=== PATIENT | male | born 1965 | race Caucasian/White ===

== ENCOUNTER 2018-03-25 12:23 | Emergency (ER) | payer BC, OTHER ==
--- NOTE | 2018-03-25 12:43 | ED ---
General Adult HPI - General Chief complaint: Chest Pain Stated complaint: chest pain Time Seen by Provider: 03/25/18 12:27 Source: patient, RN notes reviewed, old records reviewed Mode of arrival: ambulatory Limitations: no limitations - History of Present Illness Initial comments: 52-year-old male presents for evaluation of chest pressure. Patient states that in the past he's had some intermittent chest pressure. Over the past 2 days this pressure has become constant. Central chest slightly to the left side. Denies any significant pain. Denies any radiating component. No arm, shoulder, or neck pain. No dyspnea. No diaphoresis or nausea vomiting. No known history of CAD. Patient does have history of hypercholesterolemia and is on a statin medication. He also has history of tremor. Denies abdominal pain. Denies fever or chills. Denies cough. No family history of premature coronary artery disease. - Related Data Home Medications Medication Instructions Recorded Confirmed Naproxen [Naprosyn] 250 mg PO BID PRN 03/25/18 03/25/18 Rosuvastatin Calcium [Crestor] 40 mg PO DAILY 03/25/18 03/25/18 Topiramate [Topamax] 25 mg PO BID 03/25/18 03/25/18 Previous Rx's Medication Instructions Recorded Omeprazole [PriLOSEC] 20 mg PO AC-BID #60 cap 03/25/18 Allergies Allergy/AdvReac Type Severity Reaction Status Date / Time No Known Allergies Allergy Verified 03/25/18 13:34 Review of Systems ROS Statement: Those systems with pertinent positive or pertinent negative responses have been documented in the HPI. ROS Other: All systems not noted in ROS Statement are negative. Past Medical History Past Medical History: Neurologic Disorder, Prostate Disorder Additional Past Medical History / Comment(s): hand tremors, prostate infection History of Any Multi-Drug Resistant Organisms: None Reported Additional Past Surgical History / Comment(s): wisdom teeth removed Past Anesthesia/Blood Transfusion Reactions: No Reported Reaction Past Psychological History: No Psychological Hx Reported Smoking Status: Never smoker General Exam Limitations: no limitations General appearance: alert, in no apparent distress Head exam: Present: atraumatic, normocephalic Eye exam: Present: normal appearance, PERRL, EOMI ENT exam: Present: normal exam Neck exam: Present: normal inspection. Absent: tenderness, meningismus Respiratory exam: Present: normal lung sounds bilaterally. Absent: respiratory distress, wheezes Cardiovascular Exam: Present: regular rate, normal rhythm GI/Abdominal exam: Present: soft. Absent: distended, tenderness, guarding Extremities exam: Present: normal inspection, normal capillary refill. Absent: pedal edema Neurological exam: Present: alert, oriented X3, CN II-XII intact. Absent: motor sensory deficit Psychiatric exam: Present: normal affect, normal mood Skin exam: Present: warm, dry, intact. Absent: cyanosis, diaphoretic Course Vital Signs 03/25/18 03/25/18 03/25/18 12:31 12:51 12:53 Temperature 99.2 F Pulse Rate 82 Pulse Rate [ 79 Health Care Assistant ] Respiratory 16 16 Rate Blood Pressure 142/81 O2 Sat by Pulse 96 Oximetry 03/25/18 13:34 Temperature Pulse Rate 77 Pulse Rate [ Health Care Assistant ] Respiratory 18 Rate Blood Pressure 119/74 O2 Sat by Pulse 99 Oximetry EKG Findings - EKG Comments: EKG Findings:: EKG: Normal sinus rhythm, ventricular rate of 74, W[place] interval 112 , QRS duration 82, QTC 404, there is no ST segment elevation or depression, T waves are upright. Medical Decision Making - Medical Decision Making 52-year-old male presenting with central chest pressure for the past 2 days. Pain is been constant. EKG is nonischemic. Chest x-ray negative. CBC is unremarkable. Creatinine 1.3 which is mildly elevated although there is no known baseline for comparison. Troponin is negative which is very reassuring given the duration of symptoms. Patient is offered observation for repeat troponin and cardiology consultation. He prefers outpatient follow-up. He will return with worsening or changing symptoms. He will arrange for an outpatient stress test with his primary care physician. Heart score:2 - Lab Data Result diagrams: 03/25/18 12:40 03/25/18 12:40 Lab Results 03/25/18 03/25/18 03/25/18 Range/Units 12:40 12:40 12:40 WBC 5.4 (3.8-10.6) k/uL RBC 5.15 (4.30-5.90) m/uL Hgb 15.4 (13.0-17.5) gm/dL Hct 45.2 (39.0-53.0) % MCV 87.9 (80.0-100.0) fL MCH 29.8 (25.0-35.0) pg MCHC 34.0 (31.0-37.0) g/dL RDW 12.8 (11.5-15.5) % Plt Count 240 (150-450) k/uL Neutrophils % 60 % Lymphocytes % 29 % Monocytes % 7 % Eosinophils % 2 % Basophils % 0 % Neutrophils # 3.2 (1.3-7.7) k/uL Lymphocytes # 1.6 (1.0-4.8) k/uL Monocytes # 0.4 (0-1.0) k/uL Eosinophils # 0.1 (0-0.7) k/uL Basophils # 0.0 (0-0.2) k/uL PT (9.0-12.0) sec INR (<1.2) APTT (22.0-30.0) sec Sodium 140 (137-145) mmol/L Potassium 4.2 (3.5-5.1) mmol/L Chloride 108 H (98-107) mmol/L Carbon Dioxide 24 (22-30) mmol/L Anion Gap 8 mmol/L BUN 26 H (9-20) mg/dL Creatinine 1.30 H (0.66-1.25) mg/dL Est GFR (CKD-EPI)AfAm 72 (>60 ml/min/1.73 sqM) Est GFR (CKD-EPI)NonAf 63 (>60 ml/min/1.73 sqM) Glucose 107 H (74-99) mg/dL Calcium 9.8 (8.4-10.2) mg/dL Magnesium 2.2 (1.6-2.3) mg/dL Total Bilirubin 0.7 (0.2-1.3) mg/dL AST 24 (17-59) U/L ALT 42 (21-72) U/L Alkaline Phosphatase 62 (38-126) U/L Total Creatine Kinase 139 (55-170) U/L CK-MB (CK-2) 1.2 (0.0-2.4) ng/mL CK-MB (CK-2) Rel Index 0.9 Troponin I <0.012 (0.000-0.034) ng/mL NT-Pro-B Natriuret Pep pg/mL Total Protein 7.0 (6.3-8.2) g/dL Albumin 4.5 (3.5-5.0) g/dL Lipase 88 (23-300) U/L 03/25/18 03/25/18 Range/Units 12:40 12:40 WBC (3.8-10.6) k/uL RBC (4.30-5.90) m/uL Hgb (13.0-17.5) gm/dL Hct (39.0-53.0) % MCV (80.0-100.0) fL MCH (25.0-35.0) pg MCHC (31.0-37.0) g/dL RDW (11.5-15.5) % Plt Count (150-450) k/uL Neutrophils % % Lymphocytes % % Monocytes % % Eosinophils % % Basophils % % Neutrophils # (1.3-7.7) k/uL Lymphocytes # (1.0-4.8) k/uL Monocytes # (0-1.0) k/uL Eosinophils # (0-0.7) k/uL Basophils # (0-0.2) k/uL PT 9.9 (9.0-12.0) sec INR 1.0 (<1.2) APTT 23.4 (22.0-30.0) sec Sodium (137-145) mmol/L Potassium (3.5-5.1) mmol/L Chloride (98-107) mmol/L Carbon Dioxide (22-30) mmol/L Anion Gap mmol/L BUN (9-20) mg/dL Creatinine (0.66-1.25) mg/dL Est GFR (CKD-EPI)AfAm (>60 ml/min/1.73 sqM) Est GFR (CKD-EPI)NonAf (>60 ml/min/1.73 sqM) Glucose (74-99) mg/dL Calcium (8.4-10.2) mg/dL Magnesium (1.6-2.3) mg/dL Total Bilirubin (0.2-1.3) mg/dL AST (17-59) U/L ALT (21-72) U/L Alkaline Phosphatase (38-126) U/L Total Creatine Kinase (55-170) U/L CK-MB (CK-2) (0.0-2.4) ng/mL CK-MB (CK-2) Rel Index Troponin I (0.000-0.034) ng/mL NT-Pro-B Natriuret Pep 49 pg/mL Total Protein (6.3-8.2) g/dL Albumin (3.5-5.0) g/dL Lipase (23-300) U/L Disposition Clinical Impression: Chest pain Disposition: HOME SELF-CARE Condition: Good Instructions: Chest Pain (ED) Prescriptions: Omeprazole [PriLOSEC] 20 mg PO AC-BID #60 cap Is patient prescribed a controlled substance at d/c from ED?: No Referrals: Shashi Watkins MD [Primary Care Provider] - 1-2 days Time of Disposition: 14:23
[2018-03-25 12:57] LABS: Basophils % (A) 0 %; Eosinophils # (A) 0.1 k/uL (0-0.7); Eosinophils % (A) 2 %; HCT 45.2 % (39.0-53.0); HGB 15.4 gm/dL (13.0-17.5); Lymphocytes # (A) 1.6 k/uL (1.0-4.8); Lymphocytes % (A) 29 %; MCH 29.8 pg (25.0-35.0); MCV 87.9 fL (80.0-100.0); Monocytes # (A) 0.4 k/uL (0-1.0); Monocytes % (A) 7 %; Neutrophils # (A) 3.2 k/uL (1.3-7.7); Neutrophils % (A) 60 %; Platelet Count 240 k/uL (150-450); RBC 5.15 m/uL (4.30-5.90); RDW 12.8 % (11.5-15.5); WBC 5.4 k/uL (3.8-10.6)
[2018-03-25 13:07] LABS: Partial Thromboplastin Time 23.4 sec (22.0-30.0); Prothrombin Time 9.9 sec (9.0-12.0)
[2018-03-25 13:09] LABS: Albumin 4.5 g/dL (3.5-5.0); Calcium 9.8 mg/dL (8.4-10.2); Magnesium 2.2 mg/dL (1.6-2.3); Potassium 4.2 mmol/L (3.5-5.1); Total Bilirubin 0.7 mg/dL (0.2-1.3)
--- NOTE | 2018-03-25 13:13 | XR ---
EXAMINATION TYPE: XR chest 2V DATE OF EXAM: 03/25/2018 HISTORY: Chest Pain. REFERENCE: Previous study dated 03/11/2012. FINDINGS: The lungs remain clear. Pleural spaces are clear. The heart is not enlarged. IMPRESSION: NO ACTIVE CARDIOTHORACIC ABNORMALITY.
[2018-03-25 13:16] LABS: Creatine Kinase 139 U/L (55-170)
[2018-03-25 13:29] LABS: Creatine Kinase MB 1.2 ng/mL (0.0-2.4); Troponin I <0.012 ng/mL (0.000-0.034)
[2018-03-25 13:35] VITALS: PULSE 77
[2018-03-25 14:31] VITALS: BP 122/81; RESP 20; TEMP 97.7
== END 2018-03-25 14:49 | disposition home or self-care (01) ==
LOC: EC 12:23
DX: R07.89 Other chest pain (principal); R79.89 Other specified abnormal findings of blood chemistry; E78.00 Pure hypercholesterolemia, unspecified; N41.9 Inflammatory disease of prostate, unspecified; Z79.899 Other long term (current) drug therapy
CPT/HCPCS: 36415; 71046; 80053; 82550; 82553; 83690; 83735; 83880; 84484; 85025; 85610; 85730; 93005; 99285

== ENCOUNTER 2020-12-08 13:03 | Emergency (ER) | payer BC, OTHER ==
[2020-12-08 13:25] VITALS: PULSE 90; RESP 20
--- NOTE | 2020-12-08 14:54 | ED ---
General Adult HPI - General Chief complaint: Abdominal Pain Stated complaint: Stomach Pain Source: patient Mode of arrival: ambulatory Limitations: no limitations - Related Data Home Medications Medication Instructions Recorded Confirmed Naproxen [Naprosyn] 250 mg PO BID PRN 03/25/18 03/25/18 Rosuvastatin Calcium [Crestor] 40 mg PO DAILY 03/25/18 03/25/18 Topiramate [Topamax] 25 mg PO BID 03/25/18 03/25/18 Previous Rx's Medication Instructions Recorded Omeprazole [PriLOSEC] 20 mg PO AC-BID #60 cap 03/25/18 Allergies Allergy/AdvReac Type Severity Reaction Status Date / Time No Known Allergies Allergy Verified 12/08/20 13:25 Review of Systems ROS Statement: Those systems with pertinent positive or pertinent negative responses have been documented in the HPI. ROS Other: All systems not noted in ROS Statement are negative. Past Medical History Past Medical History: Neurologic Disorder, Prostate Disorder Additional Past Medical History / Comment(s): hand tremors, prostate infection History of Any Multi-Drug Resistant Organisms: None Reported Additional Past Surgical History / Comment(s): wisdom teeth removed Past Anesthesia/Blood Transfusion Reactions: No Reported Reaction Past Psychological History: No Psychological Hx Reported Smoking Status: Never smoker Past Alcohol Use History: Occasional Past Drug Use History: None Reported General Exam Limitations: no limitations Course Vital Signs 12/08/20 13:22 Temperature 98.0 F Pulse Rate 90 Respiratory 20 Rate Blood Pressure 122/79 O2 Sat by Pulse 99 Oximetry Medical Decision Making - Lab Data Lab Results 12/08/20 Range/Units 13:32 Coronavirus (PCR) Detected A (Not Detectd) Disposition Clinical Impression: COVID-19 Disposition: HOME SELF-CARE Condition: Stable Instructions (If sedation given, give patient instructions): Coronavirus Disease 2019 (COVID-19) Additional Instructions: Please return to the Emergency Department if symptoms worsen or any other concerns. Is patient prescribed a controlled substance at d/c from ED?: No Referrals: None,Stated [Primary Care Provider] - 1-2 days Time of Disposition: 14:53
[2020-12-08 15:10] VITALS: BP 120/70; TEMP 98.3
== END 2020-12-08 15:09 | disposition home or self-care (01) ==
LOC: EC 13:03
DX: U07.1 COVID-19 (principal)
CPT/HCPCS: 87635; 99284

== ENCOUNTER 2021-01-04 08:42 | Day surgery (SDC) | payer BC, OTHER ==
[2020-12-31 12:58] VITALS: BMI 29.0
[~2021-01-04 08:42] MED LIST: LACTATED RINGERS 1,000 ML IV SCH
[2021-01-04] MEDS ORDERED: LACTATED RINGERS 1,000 ML IV ONE (08:55)
[2021-01-04 08:59] VITALS: TEMP 97.5
[2021-01-04] MEDS ORDERED: fentaNYL (PF) 50 MCG/ML 2 ML AMP ONE (09:35)
[2021-01-04] MEDS ORDERED: LIDOCAINE 1% INJ 10MG/ML (20 ML MDV) ONE (09:35)
[2021-01-04] MEDS ORDERED: MIDAZOLAM 2 MG/2 ML VIAL ONE (09:35)
[2021-01-04] MEDS ORDERED: PROPOFOL 10 MG/ML 20 ML VIAL IV ONE (09:35)
--- NOTE | 2021-01-04 09:53 | P.PCN ---
Date of Procedure: 01/04/21 Description of Procedure: BRIEF HISTORY: Patient is a 55-year-old male presenting for outpatient esophagogastroduodenoscopy for evaluation of symptoms of GERD. The patient denies any dysphagia or odynophagia had been seen in the clinic complaining of symptoms of burning reflux. He was prescribed omeprazole therapy but reports that symptoms improved with dietary and lifestyle modifications. PROCEDURE PERFORMED: Esophagogastroduodenoscopy with biopsy. PREOPERATIVE DIAGNOSIS: GERD, heartburn. ESTIMATED BLOOD LOSS: Minimal. IV sedation per anesthesia. PROCEDURE: After informed consent was obtained, the patient was brought into the endoscopy unit. IV sedation was administered by Anesthesia under continuous monitoring. Initially the Olympus GIF-190 video endoscope was inserted into the mouth. Esophagus intubated without any difficulty. It was gradually advanced into the stomach and duodenum and carefully examined. The bulb and the second part of the duodenum appeared normal, with biopsies taken. The scope at this time was withdrawn to the stomach, adequately insufflated with air, and upon careful examination, mucosa of the antrum, body, cardia and the fundus appeared normal, except for some mild punctate erythema in the antrum and body suggestive of gastritis biopsies taken. The scope was then withdrawn into the esophagus. The GE junction was located at 41 cm from the incisors, with lower esophageal biopsies taken. The esophagus appeared normal. There were no erosions or ulcerations seen and the patient tolerated the procedure well. IMPRESSION: 1. Mild gastritis. 2. Biopsies of the duodenum, antrum and body and lower esophagus. RECOMMENDATIONS: The findings of this examination were discussed with the patient and his family. Okay to resume diet. Okay to resume medications. Await pathology from biopsies. Follow up in the GI clinic as needed. Continue dietary and lifestyle modifications for GERD, and consider initiation of omeprazole therapy as previously prescribed if symptoms recur.
[2021-01-04 09:55] VITALS: RESP 16
[2021-01-04 10:08] VITALS: BP 111/75; PULSE 73
== END 2021-01-04 10:29 | disposition home or self-care (01) ==
LOC: ORWHC2ENDO 08:42
PROVIDERS: ATTEND Internal Medicine
DX: K21.9 Gastro-esophageal reflux disease without esophagitis (principal); K29.50 Unspecified chronic gastritis without bleeding; E78.5 Hyperlipidemia, unspecified; Z79.899 Other long term (current) drug therapy
CPT/HCPCS: 88305; 43239; J2250; J2001; J3010; J2704

== ENCOUNTER 2023-06-16 13:47 | Emergency (ER) | payer OTHER ==
--- NOTE | 2023-06-16 14:35 | ED ---
Abdominal Pain HPI - General Source: RN notes reviewed <Maria A Martinez - Last Filed: 06/16/23 14:34> <Edy Raman - Last Filed: 06/16/23 23:31> - General Stated Complaint: blood in stool,abd pain Time Seen by Provider: 06/16/23 14:34 - History of Present Illness Initial Comments: Patient is a 57-year-old male who presents the emergency department for abdominal pain and blood in stool. Patient has had abdominal pain for the past few days and today had black stool twice. Denies history of GI bleed. No blood thinner use. Reports a normal scope last year. Patient did take Pepto-Bismol 2 days ago and possibly yesterday. (Maria A Martinez) Patient is a 57-year-old male presents emergency Department complaining of abdominal pain. Also is complaining of dark stools. Thinks there is blood in his stools. States it is dark brown in color. Denies any malissa red blood. Is not on blood thinners. To take Pepto-Bismol 2 days ago. Has been having lower abdominal cramping sensation intermittently. Endorses normal caliber stool, Denies diarrhea. Denies chest pain. Denies shortness of breath. No similar complaints. His no other acute complaints at this time. Presents for further evaluation at this time. Has a history of chronic tremors. (Edy Raman) - Related Data Home Medications Medication Instructions Recorded Confirmed Rosuvastatin Calcium [Crestor] 40 mg PO DAILY 03/25/18 12/31/20 Topiramate [Topamax] 25 mg PO BID 03/25/18 12/31/20 Ascorbic Acid [Vitamin C] 500 mg PO DAILY 12/31/20 12/31/20 Cholecalciferol [Vitamin D3 (25 25 mcg PO DAILY 12/31/20 12/31/20 Mcg = 1000 Iu)] Hyaluronic Acid 1 tab PO DAILY 12/31/20 12/31/20 Previous Rx's Medication Instructions Recorded Dicyclomine [Bentyl] 10 mg PO TID PRN 7 Days #21 capsule 06/16/23 Allergies Allergy/AdvReac Type Severity Reaction Status Date / Time No Known Allergies Allergy Verified 12/31/20 12:52 Review of Systems ROS Other: All systems not noted in ROS Statement are negative. <Maria A Martinez - Last Filed: 06/16/23 14:34> ROS Other: All systems not noted in ROS Statement are negative. <Edy Raman - Last Filed: 06/16/23 23:31> ROS Statement: Those systems with pertinent positive or pertinent negative responses have been documented in the HPI. Review of Systems: CONST: Denies fever EYES: Denies blurry vision ENT: Denies nasal congestion C/V: Denies Chest pain RESP: Denies shortness of breath GI: Endorses abdominal pain : Denies dysuria SKIN: Denies rash. MSK: Denies joint pain. NEURO: Denies headache (Edy Raman) Past Medical History Past Medical History: GERD/Reflux, Neurologic Disorder, Prostate Disorder Additional Past Medical History / Comment(s): hand tremors, prostate infection years ago, lots of belching, epigastric pain frequently, History of Any Multi-Drug Resistant Organisms: None Reported Additional Past Surgical History / Comment(s): wisdom teeth removed, colonoscopy Past Anesthesia/Blood Transfusion Reactions: No Reported Reaction Smoking Status: Never smoker <Maria A Martinez - Last Filed: 06/16/23 14:34> General Exam <MichelleMaria A - Last Filed: 06/16/23 14:34> <Edy Raman - Last Filed: 06/16/23 23:31> - General Exam Comments Initial Comments: Visual Physical Exam Vital signs reviewed General: Well-appearing, nontoxic, no acute distress. Head: Normocephalic, atraumatic Eyes: PERRLA, EOMI ENT: Airway patent Chest: Nonlabored breathing Skin: No visual rash, normal skin tone Neuro: Alert and oriented 3 Musculoskeletal: No gross abnormalities (Maria A Martinez) General: Appears in no acute distress. HEAD: Normal with no signs of head trauma. EYES: PERRLA, EOMI, conjunctiva normal, no discharge. ENT: Hearing grossly intact, normal oropharynx. RESPIRATORY: Clear breath sounds bilaterally. No wheezes, rales, or rhonchi. C/V: Regular rate and rhythm. S1 and S2 auscultated, no edema, peripheral pulses 2+ and intact throughout ABD: Abd is soft, nontender, nondistended EXT: Normal range of motion, no obvious deformity SKIN: No rashes or lesions observed on exposed skin. NEURO: Alert and oriented 4. Patient is baseline tremors. (Edy Raman) Course Vital Signs 06/16/23 06/16/23 06/16/23 14:33 19:12 21:29 Temperature 98.4 F Pulse Rate 76 72 82 Respiratory 16 18 18 Rate Blood Pressure 137/91 115/71 121/90 O2 Sat by Pulse 98 99 97 Oximetry Medical Decision Making <Maria A Martinez - Last Filed: 06/16/23 14:34> - Lab Data Result diagrams: 06/16/23 14:49 06/16/23 14:49 <Edy Raman - Last Filed: 06/16/23 23:31> - Medical Decision Making I performed the QuickNote portion of this chart - Maria A Martinez PA-C (Maria A Martinez) Was pt. sent in by a medical professional or institution (MARTHA Larson, LAW OFFICE MANAGER, urgent care, hospital, or assisted...) When possible be specific @ -No Did you speak to anyone other than the patient for history (EMS, parent, family, police, friend...)? What history was obtained from this source @ -No Did you review nursing and triage notes (agree or disagree)? Why? @ -I reviewed and agree with nursing and triage notes Were old charts reviewed (outside hosp., previous admission, EMS record, old EKG, old radiological studies, urgent care reports/EKG's, assisted records)? Report findings @ -Old charts reviewed Differential Diagnosis (chest pain, altered mental status, abdominal pain women, abdominal pain men, vaginal bleeding, weakness, fever, dyspnea, syncope, headache, dizziness, GI bleed, back pain, seizure, CVA, palpatations, mental health, musculoskeletal)? @ -Differential Abdominal Pain Men: Appendicitis, cholecystitis, diverticulosis, ischemic bowel, pancreatitis, hepatitis, UTI, gastroenteritis, AAA, incarcerated hernia, bowel obstruction, constipation, inflammatory bowel, hepatitis, peptic ulcer disease, splenic infarction, perforated viscus, testicular torsion, this is not meant to be an all-inclusive list EKG interpreted by me (3pts min.). @ -None done X-rays interpreted by me (1pt min.). @ -None done CT interpreted by me (1pt min.). @ -CT GI bleed protocol negative for any obvious GI bleed. Patient is a nonobstructing right renal calculus. Patient has a renal cyst. No obvious other findings to explain his symptoms. U/S interpreted by me (1pt. min.). @ -None done What testing was considered but not performed or refused? (CT, X-rays, U/S, labs)? Why? @ -None What meds were considered but not given or refused? Why? @ -None Did you discuss the management of the patient with other professionals (professionals i.e. , PA, LAW OFFICE MANAGER, lab, RT, psych nurse, psych social worker, director of therapy services, teacher, youth probation officer, catalytic case operator)? Give summary @ -No Was smoking cessation discussed for >3mins.? @ -No Was critical care preformed (if so, how long)? @ -No Were there social determinants of health that impacted care today? How? (Homelessness, low income, unemployed, alcoholism, drug addiction, transportation, low edu. Level, literacy, decrease access to med. care, assisted, rehab)? @ -No Was there de-escalation of care discussed even if they declined (Discuss DNR or withdrawal of care, Hospice)? DNR status @ -No What co-morbidities impacted this encounter? (DM, HTN, Smoking, COPD, CAD, Cancer, CVA, ARF, Chemo, Hep., AIDS, mental health diagnosis, sleep apnea, morbid obesity)? @ -None Was patient admitted / discharged? Hospital course, mention meds given and route, prescriptions, significant lab abnormalities, going to OR and other pertinent info. @ -Patient's presentation and physical exam, presents with abdominal pain and possible GI bleed. Discussed the the plan with him. Work up was started in triage as a quick note. I did offer a rectal exam however we will defer until CT imaging returns. Vital signs within acceptable limits. Patient asymptomatic treated with a 1 L fluid bolus as well as IV Protonix. He declines analgesic medications. Patient's laboratory studies are all within acceptable limits. Includes normal lactic acid as well as normal hemoglobin. CT imaging negative for any acute process. I discussed results with him. Discussed she is likely having crampy abdominal pain of unknown origin, but I low suspicion for significant GI bleed if possible at this time. Did discuss that with taking Pepto-Bismol sometimes they can look like a GI bleed as well. Expressed understanding. Strict return precautions discussed. He'll be discharged home at this time. I will provide the patient with a prescription for Bentyl. I instructed the patient to follow up with their PCP in the next 1-3 days. I explained that the patient should return to the emergency department if they experience any worsening symptoms. Strict return precautions were discussed with the patient. The patient expressed understanding of these instructions. I answered all questions that the patient had. The patient was discharged home in good condition with their prescriptions and follow up information. Undiagnosed new problem with uncertain prognosis? @ -No Drug Therapy requiring intensive monitoring for toxicity (Heparin, Nitro, Insulin, Cardizem)? @ -No Were any procedures done? @ -No Diagnosis/symptom? @ -Abdominal pain of unknown etiology, dark stool Acute, or Chronic, or Acute on Chronic? @ -Acute Uncomplicated (without systemic symptoms) or Complicated (systemic symptoms)? @ -Uncomplicated Side effects of treatment? @ -No Exacerbation, Progression, or Severe Exacerbation? @ -No Poses a threat to life or bodily function? How? (Chest pain, [place], [place], pneumonia, PE, COPD, DKA, ARF, appy, cholecystitis, CVA, Diverticulitis, Homicidal, Suicidal, threat to staff... and all critical care pts) @ -No (Edy Raman) - Lab Data Lab Results 06/16/23 06/16/23 06/16/23 Range/Units 14:49 14:49 14:49 WBC 6.5 (3.8-10.6) k/uL RBC 4.91 (4.30-5.90) m/uL Hgb 15.1 (13.0-17.5) gm/dL Hct 44.9 (39.0-53.0) % MCV 91.5 (80.0-100.0) fL MCH 30.8 (25.0-35.0) pg MCHC 33.6 (31.0-37.0) g/dL RDW 12.4 (11.5-15.5) % Plt Count 241 (150-450) k/uL MPV 7.9 Neutrophils % 62 % Lymphocytes % 29 % Monocytes % 6 % Eosinophils % 2 % Basophils % 0 % Neutrophils # 4.0 (1.3-7.7) k/uL Lymphocytes # 1.8 (1.0-4.8) k/uL Monocytes # 0.4 (0-1.0) k/uL Eosinophils # 0.1 (0-0.7) k/uL Basophils # 0.0 (0-0.2) k/uL Sodium 139 (137-145) mmol/L Potassium 4.7 (3.5-5.1) mmol/L Chloride 103 (98-107) mmol/L Carbon Dioxide 28 (22-30) mmol/L Anion Gap 8 mmol/L BUN 19 (9-20) mg/dL Creatinine 0.98 (0.66-1.25) mg/dL Est GFR (CKD-EPI)AfAm >90 (>60 ml/min/1.73 sqM) Est GFR (CKD-EPI)NonAf 85 (>60 ml/min/1.73 sqM) Glucose 90 (74-99) mg/dL Plasma Lactic Acid Kasi (0.7-2.0) mmol/L Calcium 9.3 (8.4-10.2) mg/dL Total Bilirubin 0.8 (0.2-1.3) mg/dL AST 31 (17-59) U/L ALT 36 (4-49) U/L Alkaline Phosphatase 71 (38-126) U/L Total Protein 6.8 (6.3-8.2) g/dL Albumin 4.2 (3.5-5.0) g/dL Lipase 68 (23-300) U/L Urine Color Colorless Urine Appearance Clear (Clear) Urine pH 7.0 (5.0-8.0) Ur Specific Terril 1.015 (1.001-1.035) Urine Protein Negative (Negative) Urine Glucose (UA) Negative (Negative) Urine Ketones Negative (Negative) Urine Blood Negative (Negative) Urine Nitrite Negative (Negative) Urine Bilirubin Negative (Negative) Urine Urobilinogen <2.0 (<2.0) mg/dL Ur Leukocyte Esterase Negative (Negative) Blood Type Blood Type Confirm Blood Type Recheck Bld Type Recheck Status Antibody Screen Spec Expiration Date 06/16/23 06/16/23 06/16/23 Range/Units 14:49 19:05 19:10 WBC (3.8-10.6) k/uL RBC (4.30-5.90) m/uL Hgb (13.0-17.5) gm/dL Hct (39.0-53.0) % MCV (80.0-100.0) fL MCH (25.0-35.0) pg MCHC (31.0-37.0) g/dL RDW (11.5-15.5) % Plt Count (150-450) k/uL MPV Neutrophils % % Lymphocytes % % Monocytes % % Eosinophils % % Basophils % % Neutrophils # (1.3-7.7) k/uL Lymphocytes # (1.0-4.8) k/uL Monocytes # (0-1.0) k/uL Eosinophils # (0-0.7) k/uL Basophils # (0-0.2) k/uL Sodium (137-145) mmol/L Potassium (3.5-5.1) mmol/L Chloride (98-107) mmol/L Carbon Dioxide (22-30) mmol/L Anion Gap mmol/L BUN (9-20) mg/dL Creatinine (0.66-1.25) mg/dL Est GFR (CKD-EPI)AfAm (>60 ml/min/1.73 sqM) Est GFR (CKD-EPI)NonAf (>60 ml/min/1.73 sqM) Glucose (74-99) mg/dL Plasma Lactic Acid Kasi 1.1 (0.7-2.0) mmol/L Calcium (8.4-10.2) mg/dL Total Bilirubin (0.2-1.3) mg/dL AST (17-59) U/L ALT (4-49) U/L Alkaline Phosphatase (38-126) U/L Total Protein (6.3-8.2) g/dL Albumin (3.5-5.0) g/dL Lipase (23-300) U/L Urine Color Urine Appearance (Clear) Urine pH (5.0-8.0) Ur Specific Terril (1.001-1.035) Urine Protein (Negative) Urine Glucose (UA) (Negative) Urine Ketones (Negative) Urine Blood (Negative) Urine Nitrite (Negative) Urine Bilirubin (Negative) Urine Urobilinogen (<2.0) mg/dL Ur Leukocyte Esterase (Negative) Blood Type A Negative Blood Type Confirm A Negative Blood Type Recheck No Previous Record Bld Type Recheck Status CABO Indicated Antibody Screen NEGATIVE Spec Expiration Date 06/19/20232304 Disposition <Maria A Martinez - Last Filed: 06/16/23 14:34> Is patient prescribed a controlled substance at d/c from ED?: No Time of Disposition: 21:15 <Edy Raman - Last Filed: 06/16/23 23:31> Clinical Impression: Abdominal pain of unknown etiology Disposition: ADMITTED IP TO THIS HOSP Condition: Stable Prescriptions: Dicyclomine [Bentyl] 10 mg PO TID PRN 7 Days #21 capsule PRN Reason: Pain Referrals: Julian Estrada MD [Primary Care Provider] - 1-2 days
[2023-06-16 14:42] VITALS: TEMP 98.4
[2023-06-16 15:58] LABS: Basophils % (A) 0 %; Eosinophils # (A) 0.1 k/uL (0-0.7); Eosinophils % (A) 2 %; HCT 44.9 % (39.0-53.0); HGB 15.1 gm/dL (13.0-17.5); Lymphocytes # (A) 1.8 k/uL (1.0-4.8); Lymphocytes % (A) 29 %; MCH 30.8 pg (25.0-35.0); MCHC 33.6 g/dL (31.0-37.0); MCV 91.5 fL (80.0-100.0); Mean Platelet Volume 7.9; Monocytes # (A) 0.4 k/uL (0-1.0); Monocytes % (A) 6 %; Neutrophils % (A) 62 %; Platelet Count 241 k/uL (150-450); RBC 4.91 m/uL (4.30-5.90); RDW 12.4 % (11.5-15.5); WBC 6.5 k/uL (3.8-10.6)
[2023-06-16 16:09] LABS: ALT 36 U/L (4-49); AST 31 U/L (17-59); African American GFR (CKD) >90 (>60 ml/min/1.73 sqM); Albumin 4.2 g/dL (3.5-5.0); Alkaline Phosphatase 71 U/L (38-126); Anion Gap 8 mmol/L; Blood Urea Nitrogen 19 mg/dL (9-20); Calcium 9.3 mg/dL (8.4-10.2); Carbon Dioxide 28 mmol/L (22-30); Chloride 103 mmol/L (98-107); Glucose 90 mg/dL (74-99); Lipase 68 U/L (23-300); Non-African American GFR(CKD) 85 (>60 ml/min/1.73 sqM); Potassium 4.7 mmol/L (3.5-5.1); Sodium 139 mmol/L (137-145); Total Bilirubin 0.8 mg/dL (0.2-1.3); Total Protein 6.8 g/dL (6.3-8.2)
[2023-06-16] MEDS ORDERED: SODIUM CHLORIDE 0.9% 1,000 ML IV STA (18:36)
[2023-06-16] MEDS ORDERED: PANTOPRAZOLE 40 MG/10 ML VIAL IVP STA (18:36)
[2023-06-16 19:16] VITALS: RESP 18
[2023-06-16 19:36] LABS: Appearance,Urine Clear (Clear); Bilirubin,Urine Negative (Negative); Blood,Urine Negative (Negative); Color,Urine Colorless; Glucose,Urine (UA) Negative (Negative); Ketones,Urine Negative (Negative); Leukocyte Esterase,Urine Negative (Negative); Nitrite,Urine Negative (Negative); Protein,Urine Negative (Negative); Specific Gravity,Urine 1.015 (1.001-1.035); Urobilinogen,Urine <2.0 mg/dL (<2.0)
--- NOTE | 2023-06-16 20:45 | CT ---
EXAMINATION TYPE: CT angio abdomen pelvis CT DLP: 2207.8 mGycm, Automated exposure control for dose reduction was used. DATE OF EXAM: 06/16/2023 8:21 PM COMPARISON: None CLINICAL INDICATION:Male, 57 years old with history of gi bleed protocol; PHH, Abd pain rlq for 2 day s with black stools no n/v. TECHNIQUE: Multiple thin slice sub-millimeter images were obtained after administration of contrast. 3-D reconstructed images and maximum intensity projection images were obtained. CT angio abdomen pel vis CT Contrast: Contrast used:100 ml mL of Isovue 370 with IV Contrast, Oral contrast used: without Oral Contrast None FINDINGS: CTA Abdomen and pelvis: The abdominal aorta does not demonstrate aneurysmal dilatation. Atherosclero tic plaquing is identified within the abdominal aorta. The origins of the superior mesenteric artery , renal arteries, inferior mesenteric artery, and celiac axis are patent. The iliac vessels are norm al in morphology LOWER CHEST: No evidence of focal consolidation, pneumothorax or pleural effusion. LIVER: Unremarkable GALLBLADDER AND BILE DUCTS: Unremarkable. PANCREAS: Unremarkable. SPLEEN: Unremarkable. ADRENAL GLANDS: Unremarkable. KIDNEYS AND URETERS: Nonobstructing right renal calculus measuring 5 mm the left obstructing calculi low-density left peripelvic cyst measuring 3.7 x 2.3 cm no abnormal postcontrast enhancement. PELVIS BLADDER: Unremarkable REPRODUCTIVE: Coarse calcifications of the prostate gland are identified. ABDOMEN & PELVIS STOMACH AND BOWEL: No evidence of bowel obstruction. The appendix is normal. No evidence for gastriti s or hemorrhage. PERITONEUM: No evidence of pneumoperitoneum or free fluid. VASCULATURE: No evidence of aortic aneurysm. Scattered atherosclerotic disease. MUSCULOSKELETAL: No acute osseous abnormalities LYMPH NODES: No gross evidence for lymphadenopathy. SOFT TISSUE/ABDOMINAL WALL: Bilateral fat-containing inguinal hernias. Fat-containing buccal hernia. IMPRESSION 1. No evidence for gastrointestinal hemorrhage, No evidence of vascular occlusion. 2. Mild Atherosclerotic disease involving abdominal aorta and lower extremity vasculature. 3. Nonobstructing right renal calculus. 4. Left peripelvic renal cysts.
[2023-06-16 21:44] VITALS: BP 121/90; PULSE 82
== END 2023-06-16 21:55 | disposition other institution (70) ==
LOC: EC 13:47
DX: I70.0 Atherosclerosis of aorta (principal); N20.0 Calculus of kidney; N28.1 Cyst of kidney, acquired
CPT/HCPCS: 36415; 86900; 86901; 80053; 83605; 83690; 85025; 86850; 81003; 74174; 99285; 96374; 96361; C9113; Q9967

== ENCOUNTER 2024-03-27 08:29 | Day surgery (SDC) | payer OTHER ==
[~2024-03-27 08:29] MED LIST changes: -LACTATED RINGERS 1,000 ML IV SCH; +LIDOCAINE 1% (10MG/ML) FOR IV START INTRADERMA PRN
[2024-03-27] MEDS: IV FLUID CONTINUATION 1,000 ML IV ONE (08:50)
[2024-03-27 08:58] VITALS: TEMP 96.9
[2024-03-27] MEDS: LACTATED RINGERS 1,000 ML IV SCH (08:58)
[2024-03-27] MEDS ORDERED: PROPOFOL 10 MG/ML 20 ML VIAL IV ONE (09:33)
[2024-03-27] MEDS ORDERED: LIDOCAINE 1% INJ 10MG/ML (20 ML MDV) ONE (09:33)
--- NOTE | 2024-03-27 09:39 | P.PCN ---
Date of Procedure: 03/27/24 Procedure(s) Performed: BRIEF HISTORY: Patient is a 58-year-old, pleasant, white male scheduled for an upper endoscopy as a part evaluation of epigastric pain and black tarry stools that happened a month ago. Symptoms lasted for a week. He was started on omeprazole 20 mg daily for a month and symptoms completely resolved.. PROCEDURE PERFORMED: Esophagogastroduodenoscopy with biopsy. PREOPERATIVE DIAGNOSIS: Epigastric pain/melena. IV sedation per anesthesia. PROCEDURE: After informed consent was obtained, the patient was brought into the endoscopy unit. IV sedation was administered by Anesthesia under continuous monitoring. Initially the Olympus GIF-140 video endoscope was inserted into the mouth. Esophagus intubated without any difficulty. It was gradually advanced into the stomach and duodenum and carefully examined. The bulb mild duodenitis and the second part of the duodenum appeared normal. The scope at this time was withdrawn to the stomach, adequately insufflated with air, and upon careful examination, mucosa of the antrum, had scattered erosions and gastritis and biopsies were done from this area. Mucosa of the body, cardia and the fundus appeared normal. The scope was then withdrawn into the esophagus. The GE junction was located at 41 cm from the incisors. The esophagus appeared normal. There were no erosions or ulcerations seen and the patient tolerated the procedure well. IMPRESSION: 1. Antral erosive gastritis but no evidence of peptic ulcer disease 2. Mild duodenitis involving the duodenal bulb. RECOMMENDATIONS: The findings of this examination were discussed with the patient as well as his family. He was advised to follow-up the biopsy results. Avoid NSAIDs..
[2024-03-27 10:04] VITALS: BP 126/78; PULSE 70; RESP 16
== END 2024-03-27 10:29 | disposition home or self-care (01) ==
LOC: ORWHC2ENDO 08:29
PROVIDERS: ATTEND Internal Medicine Gastroenterology
DX: K29.80 Duodenitis without bleeding (principal); K29.50 Unspecified chronic gastritis without bleeding
CPT/HCPCS: 43239; J2001; J2704; 88305

== ENCOUNTER → 2024-05-13 | Outpatient (CLI) | payer OTHER ==
--- NOTE | 2024-05-13 20:06 | MR ---
EXAMINATION TYPE: MR angio head wo con DATE OF EXAM: 05/13/2024 8:01 PM CLINICAL INDICATION: Male, 58 years old with history of R51.9 HEADACHE, UNSPECIFIED; PHH, head pain. tremors COMPARISON: 03/11/2012 Technical: 3-D [id number] Axial with MIP reconstruction created on a separate workstation.. IV Contrast: None cc Findings: Vertebral arteries: The vertebral arteries are patent. Vertebral arteries are: Codominant. Basilar artery: The basilar artery is intact. The basilar artery bifurcation is normal. Internal Carotid arteries: The cervical, petrous, cavernous and supraclinoid segments are normal. ALYSSA: Patent with no evidence of aneurysm. ACOM: Present without evidence of aneurysm. MCA: Patent with no evidence of aneurysm. EXPERIENCE SPECIALIST: Patent with no evidence of aneurysm. origin of the left posterior cerebral artery. PCOM: Hypoplastic right field origin left. IMPRESSION: No evidence of aneurysm or significant stenosis. [facility], , 05/13/2024 8:03 PM
== END | disposition home or self-care (01) ==
LOC: RADMRIMAIN 19:17
PROVIDERS: ATTEND Family Medicine
DX: R51.9 Headache, unspecified
CPT/HCPCS: 70544

== ENCOUNTER → 2024-11-14 | Outpatient (CLI) | payer OTHER ==
--- NOTE | 2024-11-14 09:58 | CT ---
EXAMINATION TYPE: CT abdomen pelvis w con DATE OF EXAM: 11/14/2024 9:40 AM COMPARISON: CT abdomen pelvis most recent from 06/16/2023 CLINICAL INDICATION: Male, 59 years old with history of R10.32 LEFT LOWER QUADRANT PAIN; LLQ pain TECHNIQUE: Axial CT abdomen pelvis w con;Sagittal and coronal reformats were created on a separate w orkstation. Contrast used:100 mL of Isovue 300 with IV Contrast, (none if empty) Oral contrast used: with Oral Contrast (none if empty) CT DLP: 1401.20 mGycm, Automated exposure control for dose reduction was used. FINDINGS: LOWER CHEST: Unremarkable ABDOMEN LIVER: Unremarkable GALLBLADDER AND BILE DUCTS: Unremarkable. PANCREAS: Unremarkable. SPLEEN: Unremarkable. ADRENAL GLANDS: Unremarkable. KIDNEYS AND URETERS: No evidence of hydronephrosis. Nonobstructing right 1 mm calculus. No left renal calculi. Left peripelvic renal cyst. Right renal cortical cyst. The ureters are unremarkable. PELVIS BLADDER: No evidence for wall thickening or mass given limitations of exam. REPRODUCTIVE: Unremarkable. ABDOMEN & PELVIS STOMACH AND BOWEL: No evidence of bowel obstruction. Moderate amount stool throughout the colon. PERITONEUM/RETROPERITONEUM: No evidence of pneumoperitoneum or free fluid. VASCULATURE: Mild atherosclerotic calcifications are present throughout the abdominal aorta and its b ranches. No evidence of aortic aneurysm. MUSCULOSKELETAL: No acute osseous abnormalities LYMPH NODES: No gross evidence for lymphadenopathy. SOFT TISSUE/ABDOMINAL WALL: Fat-containing inguinal hernias. IMPRESSION: 1. No obstructive uropathy or renal calculus. 2. No evidence for diverticulitis. 3. Moderate amount stool throughout colon. 4. No obstructing right 4 mm calculus. 5. Simple appearing bilateral renal cysts. [facility], , 11/14/2024 9:56 AM
== END | disposition home or self-care (01) ==
LOC: RADCTMAIN 07:34
PROVIDERS: ATTEND Emergency Medicine
DX: R10.32 Left lower quadrant pain (principal); N28.1 Cyst of kidney, acquired; R19.5 Other fecal abnormalities
CPT/HCPCS: 74177; Q9967

== ENCOUNTER 2024-12-03 09:56 | Day surgery (SDC) | payer OTHER ==
[2024-12-03 10:27] VITALS: TEMP 98.3
[2024-12-03] MEDS: IV FLUID CONTINUATION 1,000 ML IV ONE (10:31)
[2024-12-03] MEDS: LACTATED RINGERS 1,000 ML IV SCH (10:31)
[2024-12-03] MEDS ORDERED: PROPOFOL 10 MG/ML 20 ML VIAL IV ONE (11:28)
--- NOTE | 2024-12-03 11:42 | P.PCN ---
Date of Procedure: 12/03/24 Procedure(s) Performed: BRIEF HISTORY: Patient is a 59-year-old pleasant white male scheduled for an elective colonoscopy as a part of screening for colon cancer. PROCEDURE PERFORMED: Colonoscopy. PREOPERATIVE DIAGNOSIS: Screening for colon cancer. IV sedation per Anesthesia. PROCEDURE: After informed consent was obtained, the patient, was brought into the endoscopy unit. IV sedation was administered by Anesthesia under continuous monitoring. Digital rectal examination was normal. Initially the Olympus CF-160 flexible video colonoscope was then inserted in the rectum, gradually advanced into the cecum without any difficulty. Careful examination was performed as the scope was gradually being withdrawn. Ileocecal valve and the appendiceal orifice were visualized and appeared normal. Prep was excellent. Mucosa of the cecum had a 3 mm polyp that was removed by cold snare polypectomy. In the ascending colon there was a 5 mm polyp removed by cold snare polypectomy. In the transverse colon there was another 5 mm polyp removed by cold snare polypectomy. Rest of the, ascending colon, transverse colon, descending colon, sigmoid colon, and rectum appeared normal. Retroflexion was performed in the rectum and no lesions were seen. The patient tolerated the procedure well. IMPRESSION: 3 mm cecal polyp status post cold snare polypectomy 5 mm ascending colon polyp status post cold snare polypectomy 5 mm transverse colon polyp status post cold snare polypectomy RECOMMENDATIONS: Findings of this examination were discussed with the patient as well as his family. He was advised to follow-up with the biopsy results. If the biopsy reveals adenoma he can have repeat colonoscopy in 3 years.
[2024-12-03 11:46] VITALS: RESP 14
[2024-12-03 12:00] VITALS: BP 147/92; PULSE 63
[2024-12-03] MEDS: KETOROLAC 15 MG/ML 1 ML VIAL IVP STA (12:28)
== END 2024-12-03 13:10 | disposition home or self-care (01) ==
LOC: ORWHC2ENDO 09:56
PROVIDERS: ATTEND Internal Medicine Gastroenterology
DX: Z12.11 Encounter for screening for malignant neoplasm of colon (principal); D12.0 Benign neoplasm of cecum; D12.2 Benign neoplasm of ascending colon; K63.5 Polyp of colon
CPT/HCPCS: 45385; J1885; J2704; 88305